=== PATIENT | male | born 1990 | race Hispanic/Latino ===

== ENCOUNTER 2020-06-29 11:51 | Emergency (ER) | payer SELFPAY ==
[2020-06-29 12:25] VITALS: BP 114/71
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
== END 2020-06-29 12:55 | disposition left against medical advice (07) ==
LOC: ED 11:51
DX: Z00.8 Encounter for other general examination (principal); Z53.21 Procedure and treatment not carried out due to patient leaving prior to being seen by health care provider